=== PATIENT | male | born 1955 | race Caucasian/White ===

== ENCOUNTER → 2017-03-30 | Outpatient (CLI) | payer OTHER ==
[~2017-03-30] MED LIST: ATOR-24 PO; PRLSR20 PO
[2017-03-30 13:49] LABS: LYME DISEASE AB IGG NEG (NEG)
[2017-03-30 13:52] LABS: LYME DISEASE AB IGM NEG (NEG)
== END | disposition home or self-care (01) ==
LOC: C.LAB1850 09:59
PROVIDERS: ATTEND Internal Medicine Pulmonary Disease
DX: R51 Headache (principal); R50.9 Fever, unspecified

== ENCOUNTER → 2018-04-22 | Outpatient (CLI) | payer OTHER | END | disposition home or self-care (01) | LOC: C.LAB1850 09:14 | PROVIDERS: ATTEND Internal Medicine Pulmonary Disease | DX: J02.9 Acute pharyngitis, unspecified (principal) ==